=== PATIENT | female | born 1950 | race Caucasian/White ===

== ENCOUNTER 2019-01-09 09:02 | Emergency (ER) | payer MEDICARE, OTHER ==
--- NOTE | 2019-01-09 09:56 | RAD ---
TWO VIEW CHEST: History: Cough. FINDINGS: The lungs appear clear. No infiltrate. Heart and mediastinum unremarkable. Osseous structures are unr emarkable. IMPRESSION: No acute abnormality. POS: [facility]
[2019-01-09] MEDS ORDERED: Mag-Al 1200 mg/1200 mg/30 ML UDCUP ONE (10:10)
[2019-01-09] MEDS ORDERED: Lidocaine Viscous Sol 2% 15 ml UD Cup ONE (10:10)
[2019-01-09 10:16] LABS: #Basophils 0.1 thou/uL (0.0-0.2); #Eosinphils 0.2 thou/uL (0.0-0.7); #Lymphocytes 1.7 thou/uL (1.20-3.40); #Monocytes 0.5 thou/uL (0.11-0.59); #Neutrophils 10.2 thou/uL (1.40-6.50); %Basophils 0.5 % (0.0-1.0); %Eosinophils 1.3 % (0.0-10.0); %Lymphocytes 13.3 % (21.0-51.0); %Monocytes 3.8 % (0.0-10.0); %Neutrophils 81.2 % (42.0-75.0); Mean Corpuscular HGB CONC 32.9 g/dL (32.0-36.0); Mean Corpuscular Hemoglobin 29.4 pg (27.0-31.0); Mean Corpuscular Volume 89.2 fL (78.0-98.0); Mean Platelet Volume 7.2 fL (7.4-10.4); Platelet Count 355 thou/uL (130-400); RBC Distribution Width 12.3 % (11.5-14.5); Red Blood Cell (RBC) Count 4.09 mill/uL (4.20-5.40); White Blood Cell (WBC) Count 12.6 thou/uL (4.8-10.8)
[2019-01-09 10:32] LABS: ALT (SGPT) 15 U/L (8-55); AST (SGOT) 15 U/L (5-34); Albumin 4.4 g/dL (3.4-4.8); Alkaline Phosphatase 97 U/L (40-150); Anion Gap 13 mmol/L (10-20); BUN (Urea Nitrogen) 21 mg/dL (9.8-20.1); Bilirubin, Total 0.2 mg/dL (0.2-1.2); Calc. Creatinine Clearance 0 mL/min (70-130); Calcium 10.9 mg/dL (7.8-10.44); Carbon Dioxide 26 mmol/L (23-31); Chloride 106 mmol/L (98-107); Estimated GFR-MDRD 56; Globulin 2.7 g/dL (2.4-3.5); Glucose 99 mg/dL (80-115); Potassium 4.2 mmol/L (3.5-5.1); Protein, Total 7.1 g/dL (6.0-8.3); Sodium 141 mmol/L (136-145)
[2019-01-09] MEDS ORDERED: Acetaminophen/Codeine 30-300mg Tablet ONE (10:48)
--- NOTE | 2019-01-09 11:55 | CT ---
CT NECK WITH CONTRAST: Date: 01/09/19 Multiple axial tomograms obtained through the neck with IV enhancement. INDICATION: Swallowing difficulty. Feels something caught in throat. FINDINGS: Parotid glands, submandibular glands, and thyroid unremarkable. Nasopharynx unremarkable. Oropharynx and hypopharynx unremarkable. Larynx unremarkable. Titrator space, parapharyngeal space, and retropharyngeal space unremarkable. Evaluation of the esophagus shows a small focal protrusion from the anterior wall of the esophagus mariee periorly just beyond the esophageal orifice which measures approximately 1.0 cm. This does impinge on the posterior wall of the trachea at this location. Considerations include a small esophageal divert iculum or small esophageal polyp or tumor. This will need to be evaluated with endoscopy. Otherwise, the esophagus is unremarkable as seen to the mid chest level. The paranasal sinuses and mastoids are clear. Degenerative changes in cervical spine, most prominent at C5-6 and C6-7. IMPRESSION: Nodular density which appears to extend from the anterolateral wall of the esophagus just beyond the esophageal orifice which does appear to mildly impinge on the posterior trachea measuring 1.0 cm. Rec ommend GI consult and consider elective endoscopy to evaluate the proximal esophagus. POS: [facility]
[2019-01-09] MEDS ORDERED: ISOVUE-370 76%-LOCM 1 ML ONE (12:54)
== END 2019-01-09 11:50 | disposition home or self-care (01) ==
LOC: ERS 09:02
DX: R13.10 Dysphagia, unspecified (principal); R07.0 Pain in throat; R05 Cough; E11.9 Type 2 diabetes mellitus without complications; F41.9 Anxiety disorder, unspecified; F32.9 Major depressive disorder, single episode, unspecified; Z79.84 Long term (current) use of oral hypoglycemic drugs; Z79.899 Other long term (current) drug therapy
CPT/HCPCS: 70491; 71046; 80053; 84484; 85025; 93005; Q9966